=== PATIENT | male | born 1965 | race Caucasian/White ===

== ENCOUNTER 2017-10-10 11:46 | Emergency (ER) | payer OTHER ==
[2017-10-10] MEDS: ALBUTEROL 0.5% (NEB) 2.5 MG/0.5 ML AMP INH (15:44)
[2017-10-10] MEDS: NITROGLYCERIN 2% 1 GM OINT PKT TD (15:46)
[2017-10-10] MEDS: ASPIRIN 325 MG TAB PO (15:46)
[2017-10-10] MEDS: METHYLPREDNISOLONE 125 MG INJ IV (15:46)
[2017-10-10 16:19] LABS: ADD MAN DIFF? NO
[2017-10-10 16:24] LABS: WHITE BLOOD COUNT 7.9 10^3/ul (4.8-10.8)
[2017-10-10 16:24] LABS: BASOPHIL # 0.1 10^3/ul (0.0-0.1); BASOPHILS % 0.8 % (0.0-2.0); EOSINOPHILS # 0.1 10^3/ul (0.0-0.5); EOSINOPHILS % 1.8 % (0.0-7.0); HEMATOCRIT 43.3 % (42.0-52.0); MEAN CORPUSCULAR HEMOGLOBIN 29.1 pg (29.0-33.0); MEAN CORPUSCULAR HGB CONC 34.6 g/dl (32.0-37.0); MEAN CORPUSCULAR VOLUME 84.1 fl (82.0-101.0); MEAN PLATELET VOLUME 9.8 fl (7.4-10.4); MONOCYTE # 0.9 10^3/ul (0.3-0.9); MONOCYTES % 11.2 % (0.0-11.0); NEUTROPHIL # 4.8 10^3/ul (1.6-7.5); NEUTROPHILS % 60.8 % (39.0-77.0); PLATELET COUNT 338 10^3/UL (140-415); RED BLOOD COUNT 5.15 10^6/ul (4.70-6.10); RED CELL DISTRIBUTION WIDTH 12.5 % (11.5-14.5)
[2017-10-10 16:42] LABS: ALANINE AMINOTRANSFERASE 72 IU/L (13-69); ALBUMIN 4.7 g/dl (3.3-4.9); ALBUMIN/GLOBULIN RATIO 1.46; ALKALINE PHOSPHATASE 121 IU/L (42-121); ANION GAP 17 (8-16); ASPARTATE AMINO TRANSFERASE 35 IU/L (15-46); BILIRUBIN,INDIRECT 0.4 mg/dl (0-1.1); BILIRUBIN,TOTAL 0.4 mg/dl (0.2-1.3); BLOOD UREA NITROGEN 16 mg/dl (7-20); CALCIUM 9.4 mg/dl (8.4-10.2); CARBON DIOXIDE 25 mmol/L (21-31); CHLORIDE 104 mmol/L (97-110); CREATININE 0.97 mg/dl (0.61-1.24); GLUCOSE 97 mg/dl (70-220); POTASSIUM 3.9 mmol/L (3.5-5.1); SODIUM 142 mmol/L (135-144); TOTAL PROTEIN 7.9 g/dl (6.1-8.1)
[2017-10-10 16:58] LABS: TROPONIN-I < 0.012 ng/ml (0.00-0.12)
[2017-10-10] MEDS: ALPRAZOLAM 1 MG TAB PO (21:55)
[2017-10-10] MEDS: ENALAPRILAT 1.25 MG INJ IV (21:55)
== END 2017-10-10 23:20 | disposition short-term general hospital (02) ==
LOC: E/R 10-11 01:58
DX: R07.2 Precordial pain (principal); J40 Bronchitis, not specified as acute or chronic
CPT/HCPCS: 36415; 71045; 80053; 84484; 85025; 93005; 94644; 96374; 96375; 99285-25

== ENCOUNTER 2017-10-20 08:02 | Emergency (ER) | payer OTHER ==
[2017-10-20] MEDS: IBUPROFEN 800 MG TAB PO (08:23)
[2017-10-20] MEDS: predniSONE 20 MG TAB PO ×2 (08:28→08:39)
== END 2017-10-20 09:02 | disposition home or self-care (01) ==
LOC: E/R 08:02
DX: I30.9 Acute pericarditis, unspecified (principal); I10 Essential (primary) hypertension
CPT/HCPCS: 93005; 99283-25

== ENCOUNTER 2018-02-13 16:01 | Emergency (ER) | payer OTHER | END 2018-02-13 17:14 | disposition home or self-care (01) | LOC: FTE 16:01 | DX: L73.9 Follicular disorder, unspecified (principal); I10 Essential (primary) hypertension | CPT/HCPCS: 99283 ==